=== PATIENT | female | born 1980 | race Two or more races ===

== ENCOUNTER 2020-10-08 01:04 | Emergency (ER) | payer OTHER ==
[~2020-10-08] VITALS: Ht 160 cm; Wt 100.7 kg
[2020-10-08] MEDS ORDERED: INTESTINEX680 M1 PO (06:11)
[2020-10-08] MEDS ORDERED: PEPCID40 MG PO (06:11)
[2020-10-08] MEDS ORDERED: ZOFRAN8 MG PO (06:11)
== END 2020-10-08 06:29 ==
LOC: ER 01:04
DX: K52.89 Other specified noninfective gastroenteritis and colitis (principal)